=== PATIENT | female | born 1970 | race Caucasian/White ===

== ENCOUNTER 2019-07-09 14:48 | Emergency (ER) | payer OTHER ==
[~2019-07-09] VITALS: Ht 152.4 cm; Wt 86.0 kg
[~2019-07-09 14:48] MED LIST: IBUP-1542 PO
[2019-07-09 14:51] VITALS: BP 142/82; PULSE 70; RESP 18; Ht 152.4 cm; Wt 86.0 kg
[2019-07-09] MEDS ORDERED: IBUPROFEN 800 MG TAB PO ONE (15:30)
== END 2019-07-09 18:48 | disposition home or self-care (01) ==
LOC: FTE 14:48
DX: R10.2 Pelvic and perineal pain (principal)
CPT/HCPCS: 76856; 81001